=== PATIENT | female | born 1960 | race Hispanic/Latino ===

== ENCOUNTER 2022-10-30 00:13 | Emergency (ER) | payer SELFPAY ==
[2022-10-30] MEDS ORDERED: KETOROLAC 30 MG/ML INJ ONE (00:56)
[2022-10-30] MEDS ORDERED: MAGNES/ALUMIN/SIMET 30ML UCUP ONE (00:56)
[2022-10-30] MEDS ORDERED: FAMOTIDINE 20 MG/2 ML VIAL IV ONE (00:57)
[2022-10-30] MEDS ORDERED: NA CHLORIDE 0.9% 1,000 ML ONE (00:57)
[2022-10-30] MEDS ORDERED: LIDOCAINE VISCOUS 2% SOLN 15 ML UDC ONE (00:57)
[2022-10-30 01:12] LABS: Absolute Lymphocytes (CBC) 2.6 K/uL (0.7-4.9); Hematocrit 45.6 % (36.0-45.0); Lymphocytes % 28.9 % (15.3-44.8); MCV 90.1 fL (80-100); MPV 8.9 fL (7.6-11.3); RBC Red Blood Cell Count 5.06 M/uL (3.86-4.86)
[2022-10-30 01:45] LABS: Albumin 3.5 g/dL (3.4-5.0); Bilirubin Total 2.2 mg/dL (0.2-1.0); Potassium 3.1 mEq/L (3.5-5.1); Protein, Total 6.7 g/dL (6.4-8.2)
[2022-10-30] MEDS ORDERED: POTASSIUM CL SA 10 MEQ TAB PO ONE (01:58)
[2022-10-30] MEDS ORDERED: POTASSIUM 25 MEQ EFFERV TAB ONE (02:01)
[2022-10-30 02:11] LABS: Specific Gravity 1.005 (1.005-1.030); Urine Bilirubin NEGATIVE (Negative); Urine Blood Negative (Negative); Urine Clarity Clear (Clear); Urine Color Colorless (Yellow); Urine Glucose NEGATIVE (Negative); Urine Protein NEGATIVE (Negative); Urine Urobilinogen Normal (Normal)
--- NOTE | 2022-10-30 02:30 | EDPHYS ---
Physician Documentation [facility] Name: Carol Miranda Age: 62 yrs Sex: Female : 1960 Arrival Date: 10/30/2022 Time: 00:13 Bed 13 Private MD: ED Physician Nancy Deleon HPI: 10/30 00:44 This 62 yrs old Female presents to ER via Ambulatory with complaints of sd2 Abdominal Cramping, Headache, Difficulty Swallowing. 00:44 62-year-old female presents with chief complaint of 2-week history of abdominal pain sd2 and cramping. She reports she was initially seen and had labs, x-rays and a CT scan performed that showed some possible constipation. She was then placed on some laxatives and did have some bowel movements but never experienced any relief. She states she continues to have worsening pain when she eats but not when she drinks. She also has had some difficulty swallowing. She does not currently have a PCP and has not yet been able to follow-up. She was seen at [facility] this past Monday and was diagnosed with strep and given a penicillin shot prior to discharge. She states she is unable to sleep at night due to the pain bothering her. She also complains of some intermittent mild headaches but does not have one currently.. Historical: - Allergies: 00:29 No Known Allergies; kl - Home Meds: 00:29 Colace 100 mg oral capsule once [Active]; Norvasc 5 mg Oral tablet daily [Active]; kl omeprazole 10 mg Oral capsule,delayed release (e.c.) daily [Active]; Zofran Oral [Active]; lactulose 10 gram/15 mL (15 mL) Oral solution daily [Active]; - PMHx: 00:29 Hypertensive disorder; kl - PSHx: 00:29 None; kl - Immunization history:: Adult Immunizations up to date. - Social history:: Smoking status: Patient denies any tobacco usage or history of. ROS: 00:44 Constitutional: Negative for fever, chills, and weight loss, Eyes: Negative for injury, sd2 pain, redness, and discharge, Cardiovascular: Negative for chest pain, palpitations, and edema, Respiratory: Negative for shortness of breath, cough, wheezing. 00:44 : Negative for dysuria, urinary frequency, hesitancy, urgency and hematuria. MS/Extremity: Negative for injury and deformity, Skin: Negative for injury, rash, and discoloration, Neuro: Negative for headache, numbness and tingling. 00:44 Abdomen/GI: Positive for abdominal pain, constipation, abdominal cramps, Negative for nausea, vomiting, diarrhea. Exam: 00:44 Constitutional: This is a well developed, well nourished patient who is awake, alert, sd2 and in no acute distress. Head/Face: Normocephalic, atraumatic. Eyes: EOMI, normal conjunctiva bilaterally Chest/axilla: Normal chest wall appearance and motion. Nontender with no deformity. Cardiovascular: Regular rate and rhythm with a normal S1 and S2. No gallops, murmurs, or rubs. 2+ distal pulses. Respiratory: Lungs have equal breath sounds bilaterally, clear to auscultation and percussion. No rales, rhonchi or wheezes noted. No increased work of breathing, no retractions or nasal flaring. Abdomen/GI: Soft, non-tender, with normal bowel sounds. No guarding or rebound. No evidence of tenderness throughout. Skin: Warm, dry with normal turgor. Normal color with no rashes, no lesions, and no evidence of cellulitis. MS/ Extremity: Pulses equal, no cyanosis. Neurovascular intact. Full, normal range of motion. Ambulatory without difficulty. Psych: Awake, alert, with orientation to person, place and time. Behavior, mood, and affect are within normal limits. Vital Signs: 00:25 BP 110 / 75; Pulse 82; Resp 18; Pulse Ox 98% on R/A; Weight 55.34 kg; Height 5 ft. 2 kl in. ; Pain 9/10; 01:59 BP 130 / 64; Pulse 64; Resp 16 S; Pulse Ox 99% on R/A; lg3 00:25 Body Mass Index 22.31 (55.34 kg, 157.48 cm) kl 00:25 Pain Scale: Adult kl MDM: 00:35 Patient medically screened. sd2 00:44 Differential diagnosis: Gastritis, cholecystitis, pancreatitis, SBO, diverticulitis, sd2 kidney stone, appendicitis, UTI, dehydration, electrolyte abnormality among others. Data reviewed: vital signs, nurses notes, lab test result(s), EKG. Consideration of Admission/Observation Escalation of care including admission/observation considered. I considered the following discharge prescriptions or medication management in the emergency department Medications were administered in the Emergency Department. See MAR. Test considered but Not performed: CT: Recent CT performed 11 days ago and showed constipation, otherwise negative per patient report. Historians other than the Patient: Family Member: Sister at bedside. Care significantly affected by the following chronic conditions: Hypertension. Care significantly affected by the following Social Determinants of Health: Poor access to healthcare and/or lack of insurance. 02:27 Counseling: I had a detailed discussion with the patient and/or guardian regarding: the sd2 historical points, exam findings, and any diagnostic results supporting the discharge/admit diagnosis, lab results, the need for outpatient follow up, to return to the emergency department if symptoms worsen or persist or if there are any questions or concerns that arise at home. Response to treatment: the patient's symptoms have markedly improved after treatment. ED course: Labs reviewed. Labs are grossly within normal clinical limits aside from hypokalemia which was replaced orally in the ER. No concern for intra-abdominal pathology at this time as the patient has a benign abdominal exam. The patient does express concern for anxiety as well as her family member at bedside who reports the same that this may be anxiety induced. Will discharge home with hydroxyzine as needed and the patient is to follow-up with a PCP to establish care as well as GI regarding her symptoms. She is comfortable with plan for discharge and outpatient follow-up and verbalizes understanding of strict return precautions.. 10/30 00:44 Order name: CBC with Diff; Complete Time: 01:27 sd10/30 00:44 Order name: CMP; Complete Time: 01:48 sd10/30 00:44 Order name: Lipase; Complete Time: 01:48 10/30 00:44 Order name: Urinalysis w/ reflexes; Complete Time: 02:15 sd10/30 00:44 Order name: IV Saline Lock; Complete Time: 01:07 10/30 00:44 Order name: Labs collected and sent; Complete Time: 01:07 sd2 Administered Medications: 01:08 Drug: NS 0.9% IV 1000 ml Route: IV; Rate: 1 bolus; Site: right forearm; lg3 02:13 Follow up: IV Status: Completed infusion; IV Intake: 1000ml lg3 01:08 Drug: Famotidine IVP 20 mg Route: IVP; Site: right forearm; lg3 02:14 Follow up: Response: No adverse reaction lg3 01:08 Drug: TORadol - Ketorolac IVP 15 mg Route: IVP; Site: right forearm; lg3 02:13 Follow up: Response: No adverse reaction; Marked relief of symptoms lg3 01:08 Drug: GI Cocktail with - (Phenobarbital-Belladonna PO 10 ml, Maalox PO lg3 Suspension 30 ml, Lidocaine Mucous Membrane Liquid 2 % 20 ml) Route: PO; 02:14 Follow up: Response: No adverse reaction; Marked relief of symptoms lg3 01:53 CANCELLED (Patient Refused): Potassium Chloride PO 40 mEq PO once sd2 02:00 Drug: Potassium PO Effervescent Tablet 50 mEq Route: PO; lg3 02:14 Follow up: Response: No adverse reaction lg3 Disposition Summary: 10/30/22 02:29 Discharge Ordered Location: Home sd2 Problem: an ongoing problem sd2 Symptoms: have improved sd2 Condition: Stable sd2 Diagnosis - Abdominal cramping sd2 - Nausea sd2 - Strep pharyngitis sd2 - Intermittent cephalgia sd2 - Anxiety sd2 - Hypokalemia sd2 Followup: sd2 - With: Private Physician - When: 2 - 3 days - Reason: Recheck today's complaints, Continuance of care, Re-evaluation by your physician Followup: sd2 - With: Leland Zhu MD - When: 2 - 3 days - Reason: Recheck today's complaints, Continuance of care Discharge Instructions: - Discharge Summary Sheet sd2 - Abdominal Pain, Adult sd2 - Managing Anxiety, Adult sd2 Forms: - Medication Reconciliation Form sd2 - Thank You Letter sd2 - Antibiotic Education sd2 - Prescription Opioid Use sd2 Prescriptions: - Carafate 100 mg/mL Oral suspension - take 10 milliliter by ORAL route before meals and at bedtime swish in mouth and sd2 swallow; use after food/drink; 120 milliliter; Refills: 0, Product Selection Permitted - hydroxyzine HCl 10 mg/5 mL Oral solution - take 12.5 milliliter by ORAL route every 4-6 hours As needed; 190 milliliter; sd2 Refills: 0, Product Selection Permitted Signatures: Dispatcher [employer] Little Anna, RN RN Pari Oviedo RN RN lg3 Nancy Deleon MD MD sd2 Corrections: (The following items were deleted from the chart) 01:53 01:48 Potassium Chloride PO 40 mEq PO once ordered. sd2 sd2
--- NOTE | 2022-10-30 02:30 | ER ---
Nurse's Notes [facility] Name: Carol Miranda Age: 62 yrs Sex: Female : 1960 Arrival Date: 10/30/2022 Time: 00:13 Bed 13 Private MD: Diagnosis: Abdominal cramping;Nausea;Strep pharyngitis;Intermittent cephalgia;Anxiety;Hypokalemia Presentation: 10/30 00:25 Chief complaint: Patient states: abdominal pain to right side began today. Coronavirus kl screen: Vaccine status: Patient reports receiving the 2nd dose of the covid vaccine. Ebola Screen: Patient negative for fever greater than or equal to 101.5 degrees Fahrenheit, and additional compatible Ebola Virus Disease symptoms. Initial Sepsis Screen: Does the patient meet any 2 criteria? No. Patient's initial sepsis screen is negative. Does the patient have a suspected source of infection? No. Patient's initial sepsis screen is negative. Risk Assessment: Do you want to hurt yourself or someone else? Patient reports no desire to harm self or others. 00:25 Method Of Arrival: Ambulatory kl 00:25 Acuity: ALEX 3 kl Triage Assessment: 00:31 General: Appears distressed, uncomfortable, Behavior is cooperative. Pain: Complains of kl pain in left upper quadrant Pain currently is 9 out of 10 on a pain scale. at worst was 10 out of 10 on a pain scale. GI: Reports upper abdominal pain, cramping. Historical: - Allergies: 00:29 No Known Allergies; kl - Home Meds: 00:29 Colace 100 mg oral capsule once [Active]; Norvasc 5 mg Oral tablet daily [Active]; kl omeprazole 10 mg Oral capsule,delayed release (e.c.) daily [Active]; Zofran Oral [Active]; lactulose 10 gram/15 mL (15 mL) Oral solution daily [Active]; - PMHx: 00:29 Hypertensive disorder; kl - PSHx: 00:29 None; kl - Immunization history:: Adult Immunizations up to date. - Social history:: Smoking status: Patient denies any tobacco usage or history of. Screenin:53 [facility] ED Fall Risk Assessment (Adult) History of falling in the last 3 months, lg3 including since admission No falls in past 3 months (0 pts). Abuse screen: Denies threats or abuse. Denies injuries from another. Nutritional screening: No deficits noted. Tuberculosis screening: No symptoms or risk factors identified. Assessment: 00:53 General: Appears in no apparent distress. uncomfortable, Behavior is calm, cooperative. lg3 Pain: Complains of pain in abdomen Pain currently is 9 out of 10 on a pain scale. Neuro: No deficits noted. Walls Agitation-Sedation Scale (RASS): 0 - Alert and Calm Level of Consciousness is awake, alert, obeys commands, Oriented to person, place, time, situation. Cardiovascular: No deficits noted. Denies chest pain, shortness of breath, Capillary refill < 3 seconds Clubbing of nail beds is absent JVD is absent Patient's skin is warm and dry. Respiratory: No deficits noted. Airway is patent Trachea midline Respiratory effort is even, unlabored, Respiratory pattern is regular, symmetrical. GI: No deficits noted. Abdomen is flat, non-distended, Bowel sounds present X 4 quads. Abd is soft X 4 quads Abdomen is tender to palpation in abdomen diffusely Reports constipation, cramping. : No deficits noted. No signs and/or symptoms were reported regarding the genitourinary system. EENT: No deficits noted. No signs and/or symptoms were reported regarding the EENT system. Reports strep positive X4 days . Derm: No deficits noted. No signs and/or symptoms reported regarding the dermatologic system. Skin is intact, is healthy with good turgor, Skin is dry, Skin is normal, Skin temperature is warm. Musculoskeletal: No deficits noted. No signs and/or symptoms reported regarding the musculoskeletal system. Circulation, motion, and sensation intact. Range of motion: intact in all extremities. 01:59 Reassessment: Patient appears in no apparent distress at this time. No changes from lg3 previously documented assessment. Patient and/or family updated on plan of care and expected duration. Pain level reassessed. Patient is alert, oriented x 3, equal unlabored respirations, skin warm/dry/pink. Vital Signs: 00:25 BP 110 / 75; Pulse 82; Resp 18; Pulse Ox 98% on R/A; Weight 55.34 kg; Height 5 ft. 2 kl in. ; Pain 9/10; 01:59 BP 130 / 64; Pulse 64; Resp 16 S; Pulse Ox 99% on R/A; lg3 00:25 Body Mass Index 22.31 (55.34 kg, 157.48 cm) kl 00:25 Pain Scale: Adult kl ED Course: 00:19 Patient arrived in ED. [id number] 00:26 Nancy Deleon MD is Attending Physician. sd2 00:29 Triage completed. kl 00:33 Pari Gomes, RN is Primary Nurse. lg3 00:53 Patient has correct armband on for positive identification. Placed in gown. Bed in low lg3 position. Call light in reach. Side rails up X 1. Client placed on continuous cardiac and pulse oximetry monitoring. NIBP monitoring applied. Door closed. Noise minimized. Warm blanket given. Family accompanied patient. 01:07 Inserted saline lock: 22 gauge in right forearm, using aseptic technique. Blood lg3 collected. 02:33 Leland Zhu MD is Referral Physician. sd2 02:47 Arm band placed on right wrist. lg3 02:47 No provider procedures requiring assistance completed. IV discontinued, intact, lg3 bleeding controlled, No redness/swelling at site. Pressure dressing applied. Administered Medications: 01:08 Drug: NS 0.9% IV 1000 ml Route: IV; Rate: 1 bolus; Site: right forearm; lg3 02:13 Follow up: IV Status: Completed infusion; IV Intake: 1000ml lg3 01:08 Drug: Famotidine IVP 20 mg Route: IVP; Site: right forearm; lg3 02:14 Follow up: Response: No adverse reaction lg3 01:08 Drug: TORadol - Ketorolac IVP 15 mg Route: IVP; Site: right forearm; lg3 02:13 Follow up: Response: No adverse reaction; Marked relief of symptoms lg3 01:08 Drug: GI Cocktail with - (Phenobarbital-Belladonna PO 10 ml, Maalox PO lg3 Suspension 30 ml, Lidocaine Mucous Membrane Liquid 2 % 20 ml) Route: PO; 02:14 Follow up: Response: No adverse reaction; Marked relief of symptoms lg3 01:53 CANCELLED (Patient Refused): Potassium Chloride PO 40 mEq PO once sd2 02:00 Drug: Potassium PO Effervescent Tablet 50 mEq Route: PO; lg3 02:14 Follow up: Response: No adverse reaction lg3 Medication: 02:47 VIS not applicable for this client. lg3 Intake: 02:13 IV: 1000ml; Total: 1000ml. lg3 Outcome: 02:29 Discharge ordered by . sd2 02:47 Discharged to home ambulatory, with family. lg3 02:47 Condition: stable 02:47 Discharge instructions given to patient, Instructed on discharge instructions, follow up and referral plans. medication usage, Demonstrated understanding of instructions, follow-up care, medications, Prescriptions given X 2. 02:47 Patient left the ED. lg3 Signatures: Little Banks RN RN kl Gibson, Lacie, RN RN lg3 Ángela Montaño6 Nanyc Deleon MD MD sd2
[2022-10-30 03:12] VITALS: BP 130/64; O2SAT 99
== END 2022-10-30 02:47 | disposition home or self-care (01) ==
LOC: ER 00:13
DX: R10.9 Unspecified abdominal pain (principal); J02.0 Streptococcal pharyngitis; R11.0 Nausea; E87.6 Hypokalemia; F41.9 Anxiety disorder, unspecified; R51.9 Headache, unspecified
CPT/HCPCS: 36415; 80053; 81003; 83690; 85025; 96361; 96374; 96375; 99284; J7030